=== PATIENT | male | born 1990 | race Caucasian/White ===

== ENCOUNTER 2025-04-01 14:46 | Emergency (ER) | payer OTHER, SELFPAY ==
[2025-04-01] VITALS (12 sets, daily range): BP systolic 135–154; BP diastolic 78–112; PULSE 78–105; RESP 14–20; TEMP 36.6–36.9; O2SAT 93–100
--- NOTE | ~2025-04-01 | XR_ITS ---
EXAMINATION: XR chest 2V 04/01/2025 17:59 INDICATION: Cough and chest pain PROCEDURE: 2 view chest COMPARISON: No prior studies for comparison. FINDINGS: The lungs are clear. The cardiomediastinal silhouette is within normal limits. There are no pleural effusions. There is no pneumothorax suspected. IMPRESSION: 1: NO ACUTE CARDIOPULMONARY DISEASE. Reviewed, dictated and finalized at location O. THESIOLOGY FELLOW
--- NOTE | 2025-04-01 17:33 | ED_ITS ---
HPI - Fever General Chief Complaint: Fever <RABIA Thompson Last Filed: 04/01/25 17:40> Stated Complaint: fever <Taylor Cunha PA-C - Last Filed: 04/01/25 17:40> Time Seen by Provider: 04/01/25 17:33 <Taylor Cunha PA-C - Last Filed: 04/01/25 17:40> Focused HPI: Patient is a 34 y/o male who presents to the ED with c/o URI sx's. Patient reports he has been sick for the past few days with fevers, cough, congestion, rhinorrhea, indigestion, L sided chest pain, SOB - worse with exertion. Went to and tested negative for COVID/influenza/RSV. Was Rx'd z- pack and inhaler but is not feeling improved. Also c/o intermittent blurry vision, lightheadedness. States his BP has been elevated for the past couple months. States he is unable to see his primary until next week. GENERAL: Well-appearing, well-nourished, and in no acute distress. HEAD: Normocephalic, atraumatic. CHEST: Clear to auscultation. ?No respiratory distress. No focal lung sounds HEART: Regular rate and rhythm.? NEURO: ?Alert and oriented x3. Patient screened in triage and initial orders placed.? ?Additional care and disposition to be based upon?diagnostic testing and treatment. <Taylor Cunha PA-C - Last Filed: 04/01/25 17:40> Source: patient <RABIA Thompson Last Filed: 04/01/25 17:40> family (dad) <Eda Wheatley MD - Last Filed: 04/03/25 19:42> Mode of arrival: ambulatory <RABIA Thompson Last Filed: 04/01/25 17:40> Limitations: no limitations <RABIA Thompson Last Filed: 04/01/25 17:40> History of Present Illness HPI Narrative: Agree with the above with the following additions/corrections: Symptoms for a few days. Reports fevers (101 last night), chills (shaking the other day), and shortness of breath. 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 bp at home 157/90. No previous diagnosis HTN. Went to 3 days and and prescribed 'z pack and inhaler which helped a little. Has been using Dayquil and Nyquil. Does not get much sleep as he works a lot and has young twins. Averages 4 hours sleep/night. Reports kind of blurry vision but states it is hard to explain. occurs intermittently. Has happened before this. Saw eye doctor, no change. Denies flashes/floaters/curtain defect. Had a headache the other day, not now. Has been coughing. Last dose tylenol / ibuprofen 2 hours [employer]. History of hypoglycemia (no diagnosis diabetes mellitus) for which he previously wore a continuous glucose monitor. PCP Dr Tiwari. Also having some trouble swallowing, feels very aware of the sensation of swallowing/contents going down. Overall in general states he has been dizzy but notes it is hard to describe, like lightheadeness but in general just 'feels weird. Sore throat. <Eda Wheatley MD - Last Filed: 04/03/25 19:42> Related Data Allergies/Adverse Reactions: Allergies Allergy/AdvReac Type Severity Reaction Status Date / Time No Known Allergies Allergy Verified 04/01/25 20:51 <Taylor Cunha PA-C - Last Filed: 04/01/25 17:40> Exam 2 Narrative: GENERAL: Well-appearing, well-nourished, and in no acute distress. HEAD: Normocephalic, atraumatic. EYES: Non injected, non icteric. ENT: Nares clear, no rhinorrhea or epistaxis. Gross auditory acuity intact. NECK: Supple. No meningismus. CHEST: Speaking in full sentences. No respiratory distress. HEART: Regular rate and rhythm. . ABDOMEN: Soft, nondistended. No rigidity or guarding. Not peritoneal EXTREMITIES: Normal range of motion. No lower extremity edema. SKIN: Warm, dry, no rash. NEURO: No focal deficits. Alert and oriented. Answering questions. Following commands. Normal speech without aphasia or dysarthria. No dysphonia/muffled speech. PSYCH: Normal mood and affect. <Eda Wheatley MD - Last Filed: 04/03/25 19:42> Course Vital Signs Vital signs: Vital Signs Temperature 97.9 F 04/01/25 14:52 Pulse Rate 84 04/01/25 14:52 Respiratory Rate 17 04/01/25 14:52 Blood Pressure 154/112 H 04/01/25 14:52 Pulse Oximetry 100 04/01/25 14:52 Oxygen Delivery Room Air 04/01/25 14:52 Temperature 98.5 F 04/01/25 21:27 Pulse Rate 95 04/01/25 21:27 Respiratory Rate 14 04/01/25 21:27 Blood Pressure 141/81 H 04/01/25 21:27 Pulse Oximetry 98 04/01/25 21:27 Oxygen Delivery Room Air 04/01/25 14:52 <Taylor Cunha PA-C - Last Filed: 04/01/25 17:40> Vital Signs Temperature 97.9 F 04/01/25 14:52 Pulse Rate 84 04/01/25 14:52 Respiratory Rate 17 04/01/25 14:52 Blood Pressure 154/112 H 04/01/25 14:52 Pulse Oximetry 100 04/01/25 14:52 Oxygen Delivery Room Air 04/01/25 14:52 Temperature 98.5 F 04/01/25 21:27 Pulse Rate 95 04/01/25 21:27 Respiratory Rate 14 04/01/25 21:27 Blood Pressure 141/81 H 04/01/25 21:27 Pulse Oximetry 98 04/01/25 21:27 Oxygen Delivery Room Air 04/01/25 14:52 <Eda Wheatley MD - Last Filed: 04/03/25 19:42> MDM MDM Narrative Medical decision making narrative: MSE by YOSELIN in triage <Taylor Cunha PA-C - Last Filed: 04/01/25 17:40> MSE by YOSELIN in triage In the emergency department he is afebrile vital signs notable for hypertension. D-dimer normal. Mild abnormalities on the differential but otherwise without leukocytosis anemia thrombocytopenia. Unremarkable chemistry. Troponin normal. Viral swab and strep negative. Considered obtaining CT imaging but other benign etiologies have high pretest probability so will defer at present. Patient has been hypertensive on multiple readings. UA unremarkable. Ortho stats are reviewed. Blood pressure is acceptable in response. Heart rate does elevate. He has been PO challenging. Has drank apple juice as well. Visual acuity 20/20 and 20/25. He has been in the ED for several hours, would like to go and requesting work note which is provided. Reasonable to follow up with pcp , espeically if symptoms persist. Provided Rx for cepacol lozenges and benzonatate . Urgent care had prescribed azithromycin and inhaler. Provided referral to gi should symptoms persist if patient will require EGD at a later point in time for difficulty swallowing/hyperaware of sensation of swallowing. <Eda Wheatley MD - Last Filed: 04/03/25 19:42> Differential Diagnosis Differential Diagnosis: acute viral syndrome, bronchitis; medication side effect; new diagnosis hypertension?; sleep deprivation Also considered other etiologies but not as favored: malignancy, scleroderma, pill esophagitis, <Eda Wheatley MD - Last Filed: 04/03/25 19:42> Lab Data MDM Lab Attestation statement: I personally reviewed the patient's lab results. <Eda Wheatley MD - Last Filed: 04/03/25 19:42> Result diagrams: 04/01/25 18:09 04/01/25 18:09 <Taylor Cunha PA-C - Last Filed: 04/01/25 17:40> Labs: Lab Results 04/01/25 04/01/25 04/01/25 Range/Units 18:09 18:09 19:00 WBC 8.7 (4.5-10.0) K/mm3 RBC 5.33 (4.6-6.20) M/mm3 Hgb 15.4 (14.0-18.0) g/dL Hct 46.1 (42.0-52.0) % MCV 86.5 (80-100) fl MCH 28.9 (26-34) pg MCHC 33.4 (32-36) g/dl RDW 12.8 (11.5-14.5) % Plt Count 217 (150-375) k/mm3 MPV 9.7 (7.4-10.4) fl Immature Gran % (Auto) 0.1 (0-0.5) % Neut % (Auto) 68.0 (45.5-73.1) % Lymph % (Auto) 19.0 (18.3-44.2) % [place] % (Auto) 12.1 H (2.6-8.5) % Eos % (Auto) 0.6 (0-4.4) % Baso % (Auto) 0.2 (0.2-1.2) % Lymph # (Auto) 1.65 (0.9-3.2) K/mm3 [place] # (Auto) 1.1 H (0.1-0.6) K/mm3 Eos # (Auto) 0.1 (0-0.3) K/mm3 Baso # (Auto) 0.0 (0.0-0.1) K/mm3 Abs Immat Gran (auto) 0.01 (0.00-0.031) K/mm3 Absolute Neuts (auto) 5.9 (1.3-6.7) K/mm3 Absolute Nucleated RBC 0.000 (0.0-0.012) K/mm3 Nucleated RBC % 0.0 (0.0-0.2) % PT 13.4 (11.1-14.7) Seconds INR 1.0 APTT 29.5 (22.3-36.8) Seconds D-Dimer < 0.27 Cancelled (<0.48) ug/mL Sodium 141 (137-145) mmol/L Potassium 4.2 (3.4-5.0) mmol/L Chloride 103 (98-107) mmol/L Carbon Dioxide 29 (22-30) mmol/L Anion Gap 9 (4-12) mmol/L BUN 6 L (9-20) mg/dL Creatinine 1.12 (0.7-1.3) mg/dL Estim Creat Clear Calc 87 ml/min Estimated GFR > 60 (59 - ) Glucose 90 (65-110) mg/dL Calcium 9.4 (8.4-10.2) mg/dL Total Bilirubin 0.5 (0.2-1.3) mg/dL AST 34 (17-59) U/L ALT 42 (6-50) U/L Alkaline Phosphatase 63 (38-126) U/L Troponin I < 0.012 (0.000-0.034) ng/mL Total Protein 8.6 H (6.3-8.2) g/dL Albumin 4.6 (3.5-5.1) g/dL Urine Color (Yellow) Urine Appearance (Clear) Urine pH (5.0-9.0) Ur Specific [place] (1.001-1.035) Urine Protein (Negative) mg/dL Urine Glucose (UA) (Negative) mg/dL Urine Ketones (Negative) mg/dL Ur Blood (Man) (Negative) Urine Nitrate (Negative) Urine Bilirubin (Negative) Urine Urobilinogen (<2.0) mg/dL Leukocyte Esterase Rfl (Negative) JEAN/UL Influenza A (RT-PCR) Negative (Negative) Influenza B (RT-PCR) Negative (Negative) RSV (RT-PCR) Negative (Negative) SARS-CoV-2 RNA (RT-PCR) Negative (Negative) Group A Strep (PCR) Not detected (Negative) 04/01/25 Range/Units 20:32 WBC (4.5-10.0) K/mm3 RBC (4.6-6.20) M/mm3 Hgb (14.0-18.0) g/dL Hct (42.0-52.0) % MCV (80-100) fl MCH (26-34) pg MCHC (32-36) g/dl RDW (11.5-14.5) % Plt Count (150-375) k/mm3 MPV (7.4-10.4) fl Immature Gran % (Auto) (0-0.5) % Neut % (Auto) (45.5-73.1) % Lymph % (Auto) (18.3-44.2) % [place] % (Auto) (2.6-8.5) % Eos % (Auto) (0-4.4) % Baso % (Auto) (0.2-1.2) % Lymph # (Auto) (0.9-3.2) K/mm3 [place] # (Auto) (0.1-0.6) K/mm3 Eos # (Auto) (0-0.3) K/mm3 Baso # (Auto) (0.0-0.1) K/mm3 Abs Immat Gran (auto) (0.00-0.031) K/mm3 Absolute Neuts (auto) (1.3-6.7) K/mm3 Absolute Nucleated RBC (0.0-0.012) K/mm3 Nucleated RBC % (0.0-0.2) % PT (11.1-14.7) Seconds INR APTT (22.3-36.8) Seconds D-Dimer (<0.48) ug/mL Sodium (137-145) mmol/L Potassium (3.4-5.0) mmol/L Chloride (98-107) mmol/L Carbon Dioxide (22-30) mmol/L Anion Gap (4-12) mmol/L BUN (9-20) mg/dL Creatinine (0.7-1.3) mg/dL Estim Creat Clear Calc ml/min Estimated GFR (59 - ) Glucose (65-110) mg/dL Calcium (8.4-10.2) mg/dL Total Bilirubin (0.2-1.3) mg/dL AST (17-59) U/L ALT (6-50) U/L Alkaline Phosphatase (38-126) U/L Troponin I (0.000-0.034) ng/mL Total Protein (6.3-8.2) g/dL Albumin (3.5-5.1) g/dL Urine Color Yellow (Yellow) Urine Appearance Clear (Clear) Urine pH 7.5 (5.0-9.0) Ur Specific [place] 1.005 (1.001-1.035) Urine Protein Negative (Negative) mg/dL Urine Glucose (UA) Negative (Negative) mg/dL Urine Ketones Negative (Negative) mg/dL Ur Blood (Man) Negative (Negative) Urine Nitrate Negative (Negative) Urine Bilirubin Negative (Negative) Urine Urobilinogen 0.2 (<2.0) mg/dL Leukocyte Esterase Rfl Negative (Negative) JEAN/UL Influenza A (RT-PCR) (Negative) Influenza B (RT-PCR) (Negative) RSV (RT-PCR) (Negative) SARS-CoV-2 RNA (RT-PCR) (Negative) Group A Strep (PCR) (Negative) <Taylor Cunha PA-C - Last Filed: 04/01/25 17:40> Lab Results 04/01/25 04/01/25 04/01/25 Range/Units 18:09 18:09 19:00 WBC 8.7 (4.5-10.0) K/mm3 RBC 5.33 (4.6-6.20) M/mm3 Hgb 15.4 (14.0-18.0) g/dL Hct 46.1 (42.0-52.0) % MCV 86.5 (80-100) fl MCH 28.9 (26-34) pg MCHC 33.4 (32-36) g/dl RDW 12.8 (11.5-14.5) % Plt Count 217 (150-375) k/mm3 MPV 9.7 (7.4-10.4) fl Immature Gran % (Auto) 0.1 (0-0.5) % Neut % (Auto) 68.0 (45.5-73.1) % Lymph % (Auto) 19.0 (18.3-44.2) % [place] % (Auto) 12.1 H (2.6-8.5) % Eos % (Auto) 0.6 (0-4.4) % Baso % (Auto) 0.2 (0.2-1.2) % Lymph # (Auto) 1.65 (0.9-3.2) K/mm3 [place] # (Auto) 1.1 H (0.1-0.6) K/mm3 Eos # (Auto) 0.1 (0-0.3) K/mm3 Baso # (Auto) 0.0 (0.0-0.1) K/mm3 Abs Immat Gran (auto) 0.01 (0.00-0.031) K/mm3 Absolute Neuts (auto) 5.9 (1.3-6.7) K/mm3 Absolute Nucleated RBC 0.000 (0.0-0.012) K/mm3 Nucleated RBC % 0.0 (0.0-0.2) % PT 13.4 (11.1-14.7) Seconds INR 1.0 APTT 29.5 (22.3-36.8) Seconds D-Dimer < 0.27 Cancelled (<0.48) ug/mL Sodium 141 (137-145) mmol/L Potassium 4.2 (3.4-5.0) mmol/L Chloride 103 (98-107) mmol/L Carbon Dioxide 29 (22-30) mmol/L Anion Gap 9 (4-12) mmol/L BUN 6 L (9-20) mg/dL Creatinine 1.12 (0.7-1.3) mg/dL Estim Creat Clear Calc 87 ml/min Estimated GFR > 60 (59 - ) Glucose 90 (65-110) mg/dL Calcium 9.4 (8.4-10.2) mg/dL Total Bilirubin 0.5 (0.2-1.3) mg/dL AST 34 (17-59) U/L ALT 42 (6-50) U/L Alkaline Phosphatase 63 (38-126) U/L Troponin I < 0.012 (0.000-0.034) ng/mL Total Protein 8.6 H (6.3-8.2) g/dL Albumin 4.6 (3.5-5.1) g/dL Urine Color (Yellow) Urine Appearance (Clear) Urine pH (5.0-9.0) Ur Specific [place] (1.001-1.035) Urine Protein (Negative) mg/dL Urine Glucose (UA) (Negative) mg/dL Urine Ketones (Negative) mg/dL Ur Blood (Man) (Negative) Urine Nitrate (Negative) Urine Bilirubin (Negative) Urine Urobilinogen (<2.0) mg/dL Leukocyte Esterase Rfl (Negative) JEAN/UL Influenza A (RT-PCR) Negative (Negative) Influenza B (RT-PCR) Negative (Negative) RSV (RT-PCR) Negative (Negative) SARS-CoV-2 RNA (RT-PCR) Negative (Negative) Group A Strep (PCR) Not detected (Negative) 04/01/25 Range/Units 20:32 WBC (4.5-10.0) K/mm3 RBC (4.6-6.20) M/mm3 Hgb (14.0-18.0) g/dL Hct (42.0-52.0) % MCV (80-100) fl MCH (26-34) pg MCHC (32-36) g/dl RDW (11.5-14.5) % Plt Count (150-375) k/mm3 MPV (7.4-10.4) fl Immature Gran % (Auto) (0-0.5) % Neut % (Auto) (45.5-73.1) % Lymph % (Auto) (18.3-44.2) % [place] % (Auto) (2.6-8.5) % Eos % (Auto) (0-4.4) % Baso % (Auto) (0.2-1.2) % Lymph # (Auto) (0.9-3.2) K/mm3 [place] # (Auto) (0.1-0.6) K/mm3 Eos # (Auto) (0-0.3) K/mm3 Baso # (Auto) (0.0-0.1) K/mm3 Abs Immat Gran (auto) (0.00-0.031) K/mm3 Absolute Neuts (auto) (1.3-6.7) K/mm3 Absolute Nucleated RBC (0.0-0.012) K/mm3 Nucleated RBC % (0.0-0.2) % PT (11.1-14.7) Seconds INR APTT (22.3-36.8) Seconds D-Dimer (<0.48) ug/mL Sodium (137-145) mmol/L Potassium (3.4-5.0) mmol/L Chloride (98-107) mmol/L Carbon Dioxide (22-30) mmol/L Anion Gap (4-12) mmol/L BUN (9-20) mg/dL Creatinine (0.7-1.3) mg/dL Estim Creat Clear Calc ml/min Estimated GFR (59 - ) Glucose (65-110) mg/dL Calcium (8.4-10.2) mg/dL Total Bilirubin (0.2-1.3) mg/dL AST (17-59) U/L ALT (6-50) U/L Alkaline Phosphatase (38-126) U/L Troponin I (0.000-0.034) ng/mL Total Protein (6.3-8.2) g/dL Albumin (3.5-5.1) g/dL Urine Color Yellow (Yellow) Urine Appearance Clear (Clear) Urine pH 7.5 (5.0-9.0) Ur Specific [place] 1.005 (1.001-1.035) Urine Protein Negative (Negative) mg/dL Urine Glucose (UA) Negative (Negative) mg/dL Urine Ketones Negative (Negative) mg/dL Ur Blood (Man) Negative (Negative) Urine Nitrate Negative (Negative) Urine Bilirubin Negative (Negative) Urine Urobilinogen 0.2 (<2.0) mg/dL Leukocyte Esterase Rfl Negative (Negative) JEAN/UL Influenza A (RT-PCR) (Negative) Influenza B (RT-PCR) (Negative) RSV (RT-PCR) (Negative) SARS-CoV-2 RNA (RT-PCR) (Negative) Group A Strep (PCR) (Negative) <Eda Wheatley MD - Last Filed: 04/03/25 19:42> Imaging Data Radiologist's impression: ITS Impressions Chest X-Ray 04/01/25 17:59 IMPRESSION: 1: NO ACUTE CARDIOPULMONARY DISEASE. <Taylor Cunha PA-C - Last Filed: 04/01/25 17:40> ITS Impressions Chest X-Ray 04/01/25 17:59 IMPRESSION: 1: NO ACUTE CARDIOPULMONARY DISEASE. <Eda Wheatley MD - Last Filed: 04/03/25 19:42> ECG Data EKG #1: Attestation: I personally reviewed and interpreted this ECG as follows: < Eda Wheatley MD - Last Filed: 04/03/25 19:42> ECG completion date: 04/01/25 <Eda Wheatley MD - Last Filed: 04/03/25 19:42> ECG completion time: 18:12 <Eda Wheatley MD - Last Filed: 04/03/25 19:42> Interpretation: Normal sinus rhythm at a rate of 86 beats per minute. HI interval 137. QRS 92. QT/QTC 325/391. Good R-wave progression across the precordial leads. T-wave inversion in 3 but upright in contiguous inferior leads. No other T-wave inversion. Incomplete RBBB less QRS greater [id number]; RSR' M- shaped pattern in V1-V3; to a lesser degree wide, slurred S wave in lateral leads (I, aVL, V5-6) <Eda Wheatley MD - Last Filed: 04/03/25 19:42> Discharge Plan Discharge Clinical Impression: Blurring of vision, Light-headed, Sore throat, Elevated BP without diagnosis of hypertension, Difficulty swallowing <RABIA Thompson Last Filed: 04/01/25 17:40> Patient Disposition: Home <Taylor Cunha PA-C - Last Filed: 04/01/25 17:40> Condition: Stable <RABIA Thompson Last Filed: 04/01/25 17:40> Instructions: Antibiotic Form, Pharyngitis (ED), How to Take a Blood Pressure Reading (ED), Lightheadedness (ED), Blurred Vision (ED) <RABIA Thompson Last Filed: 04/01/25 17:40> Additional Instructions: Call your primary care physician for follow-up regarding your symptoms. Keep a log of your blood pressure readings and take them and to your physician to discuss if you need to be diagnosed with hypertension and placed on medication. Continue taking your medications as prescribed. The tessalon perles may help with cough. Cepacol lozenges may help. Given the issues with swallowing, the name of a sales associate is listed below as you may require upper endoscopy (an EGD). Rest and drink plenty of fluids. Return to the emergency department any new or worsening symptoms. <Taylor Cunha PA-C - Last Filed: 04/01/25 17:40> Patient Language: Austrian <RABIA Thompson Last Filed: 04/01/25 17:40> Prescriptions: New Sore Throat and Cough 5-7.5 mg lozenge 1 spencer PO Q4H PRN (Reason: sore throat and cough) Qty: 18 0RF benzonatate 100 mg capsule 100 mg PO BID PRN (Reason: cough) Qty: 20 0RF <RABIA Thompson Last Filed: 04/01/25 17:40> Follow-up/Referrals: Irma Thakur MD [Physician, Gastroenterology] Caryn Tiwari M.D. [Primary Care Provider, Anesthesiology] <RABIA Thompson Last Filed: 04/01/25 17:40> Stand Alone Forms: Work/School Release IP <RABIA Thompson Last Filed: 04/01/25 17:40> Time of Disposition: 21:05 <RABIA Thompson Filed: 04/01/25 17:40> 21:05 <Eda Wheatley MD - Last Filed: 04/03/25 19:42>
--- NOTE | 2025-04-01 17:35 | ECG_ITS ---
Test Date: 2025-04-01 18:12:27 Measurements Intervals [place] Rate: 86 P: 26 NM: 137 QRS: 6 QRSD: 92 T: 6 QT: 325 QTc: 391 Interpretive Statements SINUS RHYTHM INCOMPLETE RIGHT BUNDLE BRANCH BLOCK BORDERLINE T WAVE ABNORMALITY- INFERIOR LEADS BASELINE ARTIFACT- I, II, III BORDERLINE ECG No previous ECG available for comparison Electronically Signed On 04-01-2025 19:38:29 [employer] by Naeem Hendrickson D.O.
--- NOTE | 2025-04-01 18:04 | PC.NURSE ---
patient refused covid swab
[2025-04-01 18:28] LABS: Hematocrit 46.1 % (42.0-52.0); Hemoglobin 15.4 g/dL (14.0-18.0); Immature Granulocyte Percent A 0.1 % (0-0.5); Lymphocytes Absolute Auto 1.65 K/mm3 (0.9-3.2); Mean Corpuscular HGB Conc 33.4 g/dl (32-36); Mean Corpuscular Hemoglobin 28.9 pg (26-34); Mean Corpuscular Volume 86.5 fl (80-100); Nucleated Red Blood Cells Absolute Auto 0.000 K/mm3 (0.0-0.012); Nucleated Red Blood Cells Perc 0.0 % (0.0-0.2); Platelet Count Result 217 k/mm3 (150-375); Red Blood Count 5.33 M/mm3 (4.6-6.20); White Blood Count 8.7 K/mm3 (4.5-10.0)
[2025-04-01 18:46] LABS: Alanine Aminotransferase 42 U/L (6-50); Albumin Level 4.6 g/dL (3.5-5.1); Alkaline Phosphatase 63 U/L (38-126); Anion Gap 9 mmol/L (4-12); Aspartate Amino Transferase 34 U/L (17-59); Bilirubin,Total 0.5 mg/dL (0.2-1.3); Blood Urea Nitrogen 6 mg/dL (9-20); Calcium 9.4 mg/dL (8.4-10.2); Carbon Dioxide 29 mmol/L (22-30); Chloride 103 mmol/L (98-107); Estimated CRCL calculation 87 ml/min; Estimated Glomerular Filt Rate > 60; Glucose 90 mg/dL (65-110); Potassium 4.2 mmol/L (3.4-5.0); Sodium 141 mmol/L (137-145); Total Protein 8.6 g/dL (6.3-8.2)
[2025-04-01 18:47] LABS: INR 1.0; Prothrombin Time 13.4 Seconds (11.1-14.7); Strep Group A RT-PCR NOT DETECTED (Negative)
[2025-04-01 18:48] LABS: Partial Thromboplastin Time 29.5 Seconds (22.3-36.8)
[2025-04-01 18:56] LABS: Troponin I < 0.012 ng/mL (0.000-0.034)
--- NOTE | 2025-04-01 19:34 | PC.NURSE ---
Bedside report received from JESÚS Ramsay. Pt resting quietly per cart. Updated on plan of care.
[2025-04-01 19:57] LABS: Influenza A QL RT-PCR Negative (Negative); Influenza B QL RT-PCR Negative (Negative); RSV RNA, RT-PCR Negative (Negative); SARS-CoV-2 RNA PCR Negative (Negative)
[2025-04-01 20:39] LABS: Add Urine Microscopic? NO; Appearance Urine Clear (Clear); Glucose Urine UA Negative (Negative); Leukocyte Esterase Ur Negative LEU/UL (Negative); Nitrate Urine Negative (Negative); Specific Grav Ur 1.005 (1.001-1.035)
[2025-04-01] MEDS: BENZONATATE 100 MG CAPSULE PO (21:01)
== END 2025-04-01 21:28 | disposition home or self-care (01) ==
PROVIDERS: Physician Assistant; Emergency Provider Student in an Organized Health Care Education/Training Program; PCP Anesthesiology
DX: J02.9 Acute pharyngitis, unspecified (principal); Z20.822 Contact with and (suspected) exposure to COVID-19; H53.8 Other visual disturbances; R42 Dizziness and giddiness; R03.0 Elevated blood-pressure reading, without diagnosis of hypertension; R13.10 Dysphagia, unspecified; I45.10 Unspecified right bundle-branch block; R94.31 Abnormal electrocardiogram [ECG] [EKG]
CPT/HCPCS: 36415; 71046; 80053; 81003; 84484; 85025; 85380; 85610; 85730; 87637; 87651; 93005; 99284; A9270; J8540